=== PATIENT | male | born 1945 | race Caucasian/White ===

== ENCOUNTER 2024-10-19 12:07 | Inpatient (IN) | payer OTHER ==
[~2024-10-19] VITALS: Ht 180.3 cm; Wt 100.0 kg
[~2024-10-19 12:07] MED LIST: BACLPOW; FENT50DI2; LISI-285 PO; MIRALAX PO; OXYB10TA14; PERCOT PO; PRA25T PO; PRAM0.5T2 PO; PREVACID PO; TRAZ-227 PO; WARF5TAB PO; WELLBUTRIN PO; [UNRECOGNIZED DRUG - OTHER] PO
--- NOTE | 2024-10-19 12:22 | ED.PDOC ---
History of Present Illness HPI Comments 79-year-old male brought by paramedics from his home because she was having generalized weakness vomiting blood which started yesterday progressively getting worse. Patient also is complaining of abdominal discomfort without nausea vomiting. He is on a blood thinner. 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 He does not ambulate with difficulty. History of hypertension. His blood pressure when paramedics arrived was systolic 80 sitting down while lying it has increased to systolic 100. Patient mentating well. Denies any other symptoms. Chief Complaint: Abdominal Pain Time Seen by MD: 12:13 Primary Care Provider: RANDY Ram Notes: Nurses Notes, Medications, Allergies Allergies: Uncoded Allergies: DEMEROL (Allergy, Mild, 02/19/12) Home Meds Reported Medications Warfarin Sodium (Coumadin) 5 Mg Tab, PO HS 02/19/12 Trazodone Hcl (Trazodone Hcl) 50 Mg Tab, PO HS 02/19/12 Fentanyl (Fentanyl) 50 Mcg/Hr Dis 02/19/12 [Baclofen] (Baclofen) No Conflict Check 02/19/12 [Miralax] No Conflict Check, PO DAILY 02/19/12 Oxycodone W/ Acetaminophen (Percocet 5/325MG) 1 Tab Tb, PO PRN 02/19/12 [Dinupan] 10 MG TAB No Conflict Check, PO DAILY 02/19/12 [Prevacid] 30 MG CAP No Conflict Check, PO DAILY 02/19/12 Lisinopril & Hydrochlorothiazi (Lisinopril/Hydrochlorothi) 1 Tab Tab, PO HS 02/19/12 [Wellbutrin] 50 MG TAB No Conflict Check, PO DAILY 02/19/12 Pramipexole Dihydrochloride (Mirapex) 0.25 Mg Tab, PO PRN 02/19/12 Pramipexole Dihydrochloride (Mirapex) 0.5 Mg Tab, PO HS 02/19/12 Oxybutynin Chloride (Ditropan Xl) 10 Mg Tab, bid 02/19/12 Information Source: Patient, Emergency Med Personnel Mode of Arrival: EMS Severity: Moderate Timing: Days Duration: Since onset Past Medical History PAST MEDICAL HISTORY: HTN Surgical History: Denies all surgeries Social History Smoker: Non-Smoker Alcohol: Denies ETOH Use Drugs: Denies Drug Use Constitutional: reports: weakness; denies: chills, diaphoresis, fatigue, fever, malaise, sweats, others EENTM: denies: blurred vision, double vision, ear bleeding, ear discharge, ear drainage, ear pain, ear ringing, eye pain, eye redness, hearing loss, mouth pain, mouth swelling, nasal discharge, nose bleeding, nose congestion, nose pain, photophobia, tearing, throat pain, throat swelling, voice changes, others Respiratory: denies: cough, hemoptysis, orthopnea, SOB at rest, shortness of breath, SOB with excertion, stridor, wheezing, others Cardiovascular: denies: chest pain, dizzy spells, diaphoresis, Dyspnea on exertion, edema, irregular heart beat, left arm pain, lightheadedness, palpitations, PND, syncope, others Gastrointestinal: reports: abdominal pain, hematemesis; denies: abdomen distended, blood streaked bowels, constipated, diarrhea, dysphagia, difficulty swallowing, melena, nausea, poor appetite, poor fluid intake, rectal bleeding, rectal pain, vomiting, others Genitourinary: denies: burning, dysuria, flank pain, frequency, hematuria, incontinence, penile discharge, penile sore, pain, testicle pain, testicle swelling, urgency, others Neurological: denies: dizziness, fainting, headache, left sided numbness, left sided weakness, numbness, paresthesia, pre-existing deficit, right sided numbness, right sided weakness, seizure, speech problems, tingling, tremors, weakness, others Musculoskeletal: denies: back pain, gout, joint pain, joint swelling, muscle pain, muscle stiffness, neck pain, others Integumetry: denies: bruises, change in color, change in hair/nails, dryness, laceration, lesions, lumps, rash, wounds, others Allergic/Immunocompromised: denies: Difficulty Healing, Frequent Infections, Hives, Itching, others Hematologic/Lymphatic: denies: anemia, blood clots, easy bleeding, easy bruising, swollen glands, others Endocrine: denies: excessive hunger, excessive sweating, excessive thirst, excessive urination, flushing, intolerance to cold, intolerance to heat, unexplained weight gain, unexplained weight loss, others Psychiatric: denies: anxiety, bipolar disorder, depression, hopeless, panic disorder, schizophrenia, sleepless, suicidal, others Physical Exam General Appearance: Moderate Distress HEENT: Normal ENT Inspection, Pharynx Normal, TMs Normal Neck: Full Range of Motion, Non-Tender, Normal, Normal Inspection Respiratory: Chest Non-Tender, Lungs Clear, No Accessory Muscle Use, No Respiratory Distress, Normal Breath Sounds Cardiovascular: No Edema, No JVD, No Murmur, No Gallop, Normal Peripheral Pulses, Regular Rate/Rhythm Breast Exam: Deferred Gastrointestinal: No Organomegaly, Non Tender, No Pulsatile Mass, Normal Bowel Sounds, Soft Genitalia: Deferred Pelvic: Deferred Rectal: Deferred Extremities: No calf tenderness, Pedal edema, Swelling (Bilateral lower extremity chronic) Musculoskeletal : Apperance: Normal Neurologic: Alert, Motor Weakness (Bilateral lower extremity) Cerebellar Function: NOT DONE Reflexes: NOT DONE Skin: Normal Color Peripheral Pulses: 3+ Radial (R), 3+ Radial (L) Lymphatic: No Adenopathy Was a procedure done? Was a procedure done?: No EKG EKG : Pulse Rate (adult): 96 Cardiac Rhythm: NSR Differential Dx Considerations may include: GI bleed Electrolyte imbalance X-Ray, Labs, Meds, VS Vital Signs Date Time Temp Pulse Resp B/P (MAP) Pulse Ox O2 Delivery O2 Flow Rate FiO2 10/19/24 12:14 98.7 97 13 100/65 98.7 Patient alert. Complaining of vomiting blood. He is on blood thinner. Vitals stable. Paraplegic affecting bilateral lower extremity. Mentating well. GI consultation. Possible endoscope. Explained to the patient. Continue monitoring. Time of 1ST Reevaluation: 12:20 Reevaluation 1ST: Unchanged Patient Education/Counseling: Diagnosis, Treatment, Prognosis Family Education/Counseling: No Family Present SEPSIS Sepsis Screen Physician Orders Complete Blood Count (10/19/24 12:29) Urinalysis (10/19/24 12:29) Zofran (10/19/24 12:30) 0.9% Nacl 1 Liter Bolus (10/19/24 12:30) Vital Signs Date Time Temp Pulse Resp B/P (MAP) Pulse Ox O2 Delivery O2 Flow Rate FiO2 10/19/24 12:14 98.7 97 13 100/65 98.7 Departure 1 Departure Time of Disposition: 12:22 Impression: Primary Impression: GI bleed Qualified Codes: K92.2 - Gastrointestinal hemorrhage, unspecified Disposition: 09 ADMITTED INPATIENT Admit to: Med Surg Condition: Guarded Critical Care Note Critical Care Time?: No Stability Stability form required: No Heart Score Heart Score: Heart Score Response (Comments) Value History Slightly Suspicious 0 EKG Normal 0 Age >65 2 Risk Factors >3 or Hx ASHD 2 Troponin Normal limit 0 Total 4 GENA CORREA MD Oct 19, 2024 12:22
[2024-10-19 13:18] VITALS: PULSE 94; RESP 20; RESP 21; O2SAT 100
[2024-10-19] MEDS: MORPHINE SULFATE 4 MG/ML SYR/VIAL IV ONE (13:27)
[2024-10-19] MEDS: SODIUM CHLORIDE 0.9% 1,000 ML IVB ONE (13:27)
[2024-10-19] MEDS: ONDANSETRON HCL 4 MG/2 ML VIAL IV ONE (13:28)
[2024-10-19] MEDS: PANTOPRAZOLE 40 MG/10 ML VIAL INJ IV ONE (13:29)
[2024-10-19 13:41] LABS: Hematocrit 43.0 % (41.0-53.0); Hemoglobin 14.4 g/dL (13.5-17.5); Mean Corpuscular Hemoglobin 29.4 pg (28.0-32.0); Mean Corpuscular Volume 88.2 fL (80.0-100.0); Nucleated Red Blood Cells % 0.0 %
[2024-10-19 13:46] LABS: Chloride 101 mmol/L (98-107); Potassium 5.0 mmol/L (3.5-5.1)
[2024-10-19 13:47] LABS: Anion Gap 8 (5-15); Calcium 10.0 mg/dL (8.7-10.4); Carbon Dioxide 27 mmol/L (20-31)
[2024-10-19 13:48] LABS: Sodium 136 mmol/L (136-145)
[2024-10-19 13:52] LABS: BUN/Creatinine Ratio 13.8 (10.0-20.0)
[2024-10-19 13:55] LABS: Blood Urea Nitrogen 31 mg/dL (9-23); Glucose 117 mg/dL (74-106)
--- NOTE | 2024-10-19 16:33 | DVH ---
Indication: abd pain Technique: CT axial images of the abdomen and pelvis are obtained without contrast. Coronal and sagit jonathan reformats were obtained. Radiation Dose Information: CTDI volume is 25.39 mGy. Dose-length product is 1492 mGy*cm Comparison: None FINDINGS: There is limited interpretation of the abdomen and pelvis without administration of intravenous contr ast. Lung bases demonstrate bibasilar atelectasis. Developing right lower lobe airspace consolidation vers us nodule measuring 2.2 cm. Adrenal glands, spleen unremarkable in shape. Pancreatic parenchymal atrophy. Liver is unremarkable in shape. No CT evidence for cholelithiasis. No hydronephrosis, nephrolithiasis. Moderate size hiatal hernia. Stomach is partially distendedm. Small bowel loops are abnormally dila jasmine up to approximately 5 cm with multiple air-fluid levels. Bowel wall thickening in the lower abdom en/ pelvis. Large volume stool within the colon. Appendix poorly characterized appears to be normal in diameter, axial image 49. There are Fecal like contents within the small bowel. There is associated mesenteric edema and stranding. IVC filter. Abdominal aortic atherosclerotic disease. Bladder partially distended. Small amount of a scites fluid/ mesenteric edema, mesenteric haziness and stranding. [id number] bilateral sacroiliac degenerative joint disease. Thoracic kyphotic deformity. Moder ate to advanced thoracolumbar degenerative disc disease. Thoracolumbar levocurvature. IMPRESSION: Limited evaluation without contrast. Diffuse dilatation of small-bowel loops up to 5 cm with air-fluid levels and Fecal like contents with surrounding mesenteric edema / stranding. This could be secondary to small-bowel obstruction, high-g rade ileus/constipation. Recommend surgical consultation for further evaluation, management. Associated bowel wall thickening of the small bowel loops most pronounced within lower abdomen/ pelvi s likely secondary to the underlying obstruction/severe ileus Large volume stool within the colon Developing right lower lobe airspace consolidation versus nodule measuring 2.2 cm. Follow-up to reso lution to exclude underlying pulmonary lesion /malignancy. IVC filter.
[2024-10-19] MEDS: PIPERACILLIN-TAZOB 3.375GM 100 ML IV ONE (18:31)
[2024-10-19] MEDS ORDERED: MORPHINE SULFATE INJ 2 MG/ml SYRG IV PRN (18:45)
[2024-10-19] MEDS ORDERED: ONDANSETRON HCL 4 MG/2 ML VIAL IV PRN (18:45)
[2024-10-19] MEDS ORDERED: DOCUSATE SOD 100 MG CAP PO PRN (18:45)
[2024-10-19] MEDS ORDERED: NITROGLYCERIN 0.4 MG SL TAB SL PRN (18:45)
[2024-10-19] MEDS: D5W/LACTATED RINGERS 1,000 ML IV ONE (18:45)
--- NOTE | 2024-10-19 18:47 | DVHHP2 ---
Admitting Diagnosis: abdominal pain History of Present Illness 79-year-old male brought by paramedics from his home because she was having generalized weakness vomiting blood which started yesterday progressively getting worse. Patient also is complaining of abdominal discomfort without nausea vomiting. He is on a blood thinner. 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 He does not ambulate with difficulty. History of hypertension. His blood pressure when paramedics arrived was systolic 80 sitting down while lying it has increased to systolic 100. Patient mentating well. Denies any other symptoms. PAST MEDICAL HISTORY: HTN Surgical History: Denies all surgeries Smoker: Non-Smoker Alcohol: Denies ETOH Use Drugs: Denies Drug Use Allergies: Coded Allergies: Meperidine (Unverified Allergy, Unknown, 10/19/24) Home Meds Reported Medications Warfarin Sodium (Coumadin) 5 Mg Tab, PO HS 02/19/12 Trazodone Hcl (Trazodone Hcl) 50 Mg Tab, PO HS 02/19/12 Fentanyl (Fentanyl) 50 Mcg/Hr Dis 02/19/12 [Baclofen] (Baclofen) No Conflict Check 02/19/12 [Miralax] No Conflict Check, PO DAILY 02/19/12 Oxycodone W/ Acetaminophen (Percocet 5/325MG) 1 Tab Tb, PO PRN 02/19/12 [Dinupan] 10 MG TAB No Conflict Check, PO DAILY 02/19/12 [Prevacid] 30 MG CAP No Conflict Check, PO DAILY 02/19/12 Lisinopril & Hydrochlorothiazi (Lisinopril/Hydrochlorothi) 1 Tab Tab, PO HS 02/19/12 [Wellbutrin] 50 MG TAB No Conflict Check, PO DAILY 02/19/12 Pramipexole Dihydrochloride (Mirapex) 0.25 Mg Tab, PO PRN 02/19/12 Pramipexole Dihydrochloride (Mirapex) 0.5 Mg Tab, PO HS 02/19/12 Oxybutynin Chloride (Ditropan Xl) 10 Mg Tab, bid 02/19/12 Current Medications Current Medications Medications (Trade) Dose Ordered Sig/Max Route PRN Reason Start Time Stop Time Status Last Admin Sodium Chloride (Saline Lock Ns) 10 ml Q8HR IV 10/19/24 22:00 Docusate Sodium (Colace Capsule) 100 mg BIDPRN PRN PO FOR CONSTIPATION 10/19/24 18:45 Ondansetron HCl (Zofran) 4 mg Q4HP PRN IV NAUSEA / VOMITING 10/19/24 18:45 Nitroglycerin (Ntrostat Sublingual) 0.4 mg Q5MINP PRN SL FOR CHEST PAIN 10/19/24 18:45 Morphine Sulfate 2 mg Q30M PRN IV FOR CHEST PAIN 10/19/24 18:45 Morphine Sulfate 1 mg Q4HPRN PRN IV SEVERE PAIN (7-10 PAIN SCALE) 10/19/24 18:45 Vital Signs Vital Signs Date Time Temp Pulse Resp B/P (MAP) Pulse Ox O2 Delivery O2 Flow Rate FiO2 10/19/24 18:00 89 26 121/65 (83) 98 10/19/24 13:18 Nasal Cannula* 2 28 10/19/24 13:18 98.6 98.6 Physical Exam Generally-Patient is 71 years old male, well nourished well developed. No apparent distress HEENT-atraumatic, normocephalic Heart-regular rate and rhythm Lungs clear to auscultate bilaterally Abdomen soft nontender nondistended Musculoskeletal-no edema cyanosis Neuro-alert and oriented x3, strength intact upper extremity. Lower extremity weakness SEPSIS Sepsis Screen Date sepsis recognized/suspect: Oct 19, 2024 Time Sepsis recognized/suspect: 1324 Recent Procedure: No On Antibiotic Therapy: No Respiratory Rate >20: No Heart Rate >90: Yes Temp<36 C (96.8 F) or >38.3 C: No SBP <90 or MAP <65 mmHG: No New Acute Mental Status Change: No Is the patient on CPAP, BIPAP,: No Physician Orders Urinalysis (10/19/24 12:29) Electrocardigram (10/19/24 12:38) Ct Ab Pel Wo Con-No Oral Or Iv (10/19/24 15:46) Ngt/Ogt (10/19/24 ) * Surgical Consult (10/19/24 ) Ng To Lis (10/19/24 18:35) Admit (10/19/24 18:42) Code Status (10/19/24 18:42) Vital Signs .PER UNIT PROTOCOL (10/19/24 18:42) Review Orders With Adm. (10/19/24 18:42) Encourage Activity As Tolerate (10/19/24 18:42) Sodium Chloride Lock (Saline Lock Ns) (10/19/24 22:00) Docusate Sodium Capsule (Colace Capsule) (10/19/24 18:45) Notify Md Of Changes From Base (10/19/24 18:42) Advance Directive (10/19/24 18:42) Patient Condition (10/19/24 18:42) Allergies (10/19/24 18:42) Ondansetron Hcl (Zofran) (10/19/24 18:45) Nitroglycerin Sublingual (Ntrostat Subli (10/19/24 18:45) Morphine Sulfate Injection (10/19/24 18:45) Stat Ekg For Chest Pain (10/19/24 18:42) Notify Md Of Changes From Base (10/19/24 18:42) Medical Affairs Director For 24 Hours (10/19/24 18:42) Emergency Dysrhythmia Protocol (10/19/24 18:42) Rhythm Strips Once Every Shift (10/19/24 18:42) Oxygen By Nasal Cannula (10/19/24 18:42) D5w/Lactated Ringers (D5wlr) (10/19/24 18:45) Kidney (10/19/24 18:42) Morphine Sulfate Injection (10/19/24 18:45) Chest Xray 1 View (10/19/24 18:57) Vital Signs Date Time Temp Pulse Resp B/P (MAP) Pulse Ox O2 Delivery O2 Flow Rate FiO2 10/19/24 18:00 89 26 121/65 (83) 98 10/19/24 17:11 91 24 116/68 10/19/24 17:00 91 24 119/64 (82) 100 10/19/24 16:41 87 29 112/71 10/19/24 15:00 90 19 119/76 (90) 99 10/19/24 13:18 94 20 100 Nasal Cannula* 2 28 10/19/24 13:18 98.6 94 20 108/64 (79) 100 98.6 10/19/24 12:32 96 10/19/24 12:28 96 10/19/24 12:14 98.7 97 13 100/65 98.7 Laboratory Tests Test 10/19/24 13:10 White Blood Count 4.7 10^3/uL (4.4-10.8) Medications Medications Dose Ordered Sig/Max Route Start Time Stop Time Status Last Admin Dose Admin Morphine Sulfate 4 mg ONCE ONCE IV 10/19/24 12:30 10/19/24 12:32 DC 10/19/24 16:41 Ondansetron HCl 4 mg ONCE ONCE IV 10/19/24 12:30 10/19/24 12:32 DC 10/19/24 16:25 Pantoprazole Sodium 40 mg ONCE ONCE IV 10/19/24 12:30 10/19/24 12:32 DC 10/19/24 13:29 Piperacillin Sod/ Tazobactam Sod 100 ml @ 100 mls/hr ONCE ONCE IV 10/19/24 17:30 10/19/24 18:29 DC 10/19/24 18:31 Sodium Chloride 1,000 ml @ 1,000 mls/hr Q1H ONCE IVB 10/19/24 12:30 10/19/24 13:29 DC 10/19/24 13:27 Results Labs Test 10/19/24 19:25 10/19/24 13:10 Range/Units White Blood Count 4.7 4.4-10.8 10^3/uL Red Blood Count 4.88 4.5-5.90 10^6/uL Hemoglobin 14.4 13.5-17.5 g/dL Hematocrit 43.0 41.0-53.0 % Mean Corpuscular Volume 88.2 80.0-100.0 fL Mean Corpuscular Hemoglobin 29.4 28.0-32.0 pg Mean Corpuscular Hemoglobin Concent 33.4 32.0-36.0 g/dL Red Cell Distribution Width 17.4 H 11.8-14.3 % Platelet Count 159 140-450 10^3/uL Mean Platelet Volume 8.9 6.9-10.8 fL Neutrophils (%) (Auto) 81.4 H 37.0-80.0 % Lymphocytes (%) (Auto) 8.3 L 10.0-50.0 % Monocytes (%) (Auto) 10.1 0.0-12.0 % Eosinophils (%) (Auto) 0.0 0.0-7.0 % Basophils (%) (Auto) 0.2 0.0-2.0 % Neutrophils # (Auto) 3.8 1.6-8.6 10 ^3/uL Lymphocytes # (Auto) 0.4 0.4-5.4 10 ^3/uL Monocytes # (Auto) 0.5 0-1.3 10 ^3/uL Eosinophils # (Auto) 0 0-0.8 10 ^3/uL Basophils # (Auto) 0 0-0.2 10 ^3/uL Nucleated Red Blood Cells 0.0 % Sodium Level 136 136-145 mmol/L Potassium Level 5.0 3.5-5.1 mmol/L Chloride Level 101 98-107 mmol/L Carbon Dioxide Level 27 20-31 mmol/L Anion Gap 8 5-15 Blood Urea Nitrogen 31 H 9-23 mg/dL Creatinine 2.25 H 0.700-1.30 mg/dL Glomerular Filtration Rate Calc 29 >90 mL/min BUN/Creatinine Ratio 13.8 10.0-20.0 Serum Glucose 117 H 74-106 mg/dL Calcium Level 10.0 8.7-10.4 mg/dL Primary Diagnosis Small-bowel obstruction Right lower airspace consolidation and possible pneumonia Constipation Plan Start NG tube to lower intermittent suction Zosyn for broad-spectrum antibiotics IV fluids Surgery consult NPO except meds Full code SCD for DVT prophylaxis PPI for GI prophylaxis Plan discussed with: Patient Problems List: (1) SBO (small bowel obstruction) Date of Service: Oct 19, 2024 Billing Provider: BILLY DUNN MD Common Visit Codes: [id number] INP/OBS CARE (HIGH) BILLY DUNN MD Oct 19, 2024 18:47
--- NOTE | 2024-10-19 19:49 | DVH ---
CHEST RADIOGRAPH Indication: confirm NG tube placement Technique: Single frontal view of the chest was obtained COMPARISON: None FINDINGS: Lines and Tubes: The NG tube is seen approaching the diaphragm but the tip is not clearly identified Lungs: Bilateral opacities may reflect atelectasis or pneumonia. Pleura: No effusion. No pneumothorax. Cardiomediastinal contours: Unremarkable Bones: Unremarkable IMPRESSION: 1. The NG tube is seen approaching the diaphragm but the tip is not clearly identified. Recommend re peat chest x-ray
[2024-10-19 20:04] VITALS: PULSE 78; RESP 20; O2SAT 97
[2024-10-19 20:19] LABS: Urine Protein, UAD Negative (Negative)
--- NOTE | 2024-10-19 20:32 | DVH ---
INDICATION: mariana vs mariana vs ckd TECHNIQUE: Multiple real-time sonographic images of the kidneys and bladder were obtained. COMPARISON: None FINDINGS: The right kidney is only partially visualized but does not demonstrate hydronephrosis. The left kidney measures 8.7 cm cm in length. Echogenic left kidney may reflect sequelae of chronic m edical renal disease. No hydronephrosis or large masses/calculi are seen. No large intraluminal masses are seen in the bladder. Urinary bladder is unremarkable. IMPRESSION: No hydronephrosis. Echogenic left kidney may reflect sequelae of chronic medical renal disease.
[2024-10-19] MEDS: SODIUM CHLOR 0.9% PF (SALINE LOCK) 10ML VIAL/SYR IV SCH (20:58)
[2024-10-19 22:00] VITALS: BP 102/46; PULSE 88; RESP 17; TEMP 99.3; O2SAT 94
[2024-10-20] VITALS (7 sets, daily range): BP systolic 90–113; BP diastolic 50–81; PULSE 71–100; RESP 16–20; TEMP 97.8–98.4; O2SAT 90–94
[2024-10-20] MEDS ORDERED: MIRA25TA4 PO (00:15)
[2024-10-20] MEDS ORDERED: POLYPOW85 PO (00:15)
[2024-10-20] MEDS ORDERED: ATOR40TA52 PO (00:15)
[2024-10-20] MEDS ORDERED: LISI20TA56 PO (00:15)
[2024-10-20] MEDS ORDERED: DABI150C5 PO (00:15)
[2024-10-20] MEDS ORDERED: [UNRECOGNIZED DRUG - CODE] PO (00:15)
[2024-10-20] MEDS ORDERED: PANT40T PO (00:15)
[2024-10-20] MEDS ORDERED: TAMS0.4C39 PO (00:15)
[2024-10-20] MEDS ORDERED: DICL75TA3 TOP (00:15)
[2024-10-20] MEDS ORDERED: [UNRECOGNIZED DRUG - CODE] PO (00:15)
[2024-10-20] MEDS ORDERED: AMIT25TA20 PO (00:15)
[2024-10-20] MEDS ORDERED: CALC-134 PO (00:15)
[2024-10-20] MEDS: MORPHINE SULFATE INJ 2 MG/ml SYRG IV PRN (01:16)
--- NOTE | 2024-10-20 09:17 | DVH ---
Exam: XY KUB ABDOMEN SINGLE VIEW Indication: r/o SBO Comparison: US KIDNEY on DOS: 10/19/24, CT CT AB PEL WO CON-NO ORAL OR IV on DOS: 10/19/24 Technique: 2 radiographic views of the abdomen. Findings: Multiple abnormally dilated loops of small bowel are seen throughout the abdomen suggestive of small- bowel obstruction. There is no definite evidence for pneumoperitoneum. IVC filter is noted. Impression: 1. Small-bowel obstruction.
[2024-10-20] MEDS: FLEET ENEMA(ADULT) 135 ML PR ONE (10:00)
--- NOTE | 2024-10-20 10:44 | DVHINCON2 ---
Date of service: Oct 20, 2024 History of Present Illness 71-year-old male with a history of constipation admitted secondary to blood tinged emesis and abdominal pain. Patient reports having a bowel movement day prior to admission. Currently reports that his abdominal pain is significantly improved. Past Medical History Spinal injury resulting in walking with a walker. Hypertension. History of DVTs status post IVC filter Past Surgical History Subcutaneous pump placement for back pain/muscle spasm Family History: Deep vein thrombosis Grandfather FH: pulmonary embolism G8 SISTER Family History Noncontributory Social History Denies alcohol, tobacco, IV drug use Allergies: Coded Allergies: Meperidine (Unverified Allergy, Unknown, 10/19/24) Home Meds Reported Medications Calcium Citrate Tetrahydrate (Calcium Citrate) Citrate Pow, 100 UNIT PO, POW 10/20/24 Diclofenac Sodium (Diclofenac Sodium Dr) 75 Mg Tab, 4 G TOP BID, TAB 10/20/24 Lisinopril (Lisinopril) 20 Mg Tab, 1 TAB PO DAILY, #30 TAB 5 Refills 10/20/24 Dabigatran Etexilate Mesylate (Pradaxa) 150 Mg Cap, 110 MG PO BID, CAP 10/20/24 Pantoprazole Sodium Sesquihydr (Pantoprazole Sodium) 40 Mg Tab, 40 MG PO BID, TAB 10/20/24 Atorvastatin Calcium (ATORVASTATIN CALCIUM) 40 Mg Tab, 0.5 TAB PO DAILY, #30 TAB 5 Refills 10/20/24 Bupropion HCl (Bupropion Hydrochloride S) 200 Mg Tab, 150 MG PO DAILY, TAB 10/20/24 Tamsulosin Hcl (Tamsulosin Hcl) 0.4 Mg Cap, 0.4 MG PO BID for 30 Days, MG 10/20/24 Pramipexole Dihydrochloride (Pramipexole Dihydrochlori) 4.5 Mg Tab, 0.5 MG PO DAILY, TAB 10/20/24 Mirabegron (Mirabegron ER) 25 Mg Tab, 50 MG PO PRN for As needed, TAB 10/20/24 Polyethylene Glycol 3350 (Clearlax) 17 Gm/Scoop Pow, 17 GM PO DAILY, POW 10/20/24 Amitriptyline Hcl (Amitriptyline Hcl) 25 Mg Tab, 25 MG PO for 30 Days, MG 10/20/24 Warfarin Sodium (Coumadin) 5 Mg Tab, PO HS 02/19/12 Trazodone Hcl (Trazodone Hcl) 50 Mg Tab, PO HS 02/19/12 [Baclofen] (Baclofen) No Conflict Check 02/19/12 [Miralax] No Conflict Check, PO DAILY 02/19/12 Oxycodone W/ Acetaminophen (Percocet 5/325MG) 1 Tab Tb, PO PRN 02/19/12 [Dinupan] 10 MG TAB No Conflict Check, PO DAILY 02/19/12 [Prevacid] 30 MG CAP No Conflict Check, PO DAILY 02/19/12 Lisinopril & Hydrochlorothiazi (Lisinopril/Hydrochlorothi) 1 Tab Tab, PO HS 02/19/12 [Wellbutrin] 50 MG TAB No Conflict Check, PO DAILY 02/19/12 Pramipexole Dihydrochloride (Mirapex) 0.25 Mg Tab, PO PRN 02/19/12 Pramipexole Dihydrochloride (Mirapex) 0.5 Mg Tab, PO HS 02/19/12 Oxybutynin Chloride (Ditropan Xl) 10 Mg Tab, bid 02/19/12 Discontinued Reported Medications Fentanyl (Fentanyl) 50 Mcg/Hr Dis 02/19/12 Current Medications Current Medications Medications (Trade) Dose Ordered Sig/Max Route PRN Reason Start Time Stop Time Status Last Admin Sodium Chloride (Saline Lock Ns) 10 ml Q8HR IV 10/19/24 22:00 10/20/24 06:11 Docusate Sodium (Colace Capsule) 100 mg BIDPRN PRN PO FOR CONSTIPATION 10/19/24 18:45 Ondansetron HCl (Zofran) 4 mg Q4HP PRN IV NAUSEA / VOMITING 10/19/24 18:45 Nitroglycerin (Ntrostat Sublingual) 0.4 mg Q5MINP PRN SL FOR CHEST PAIN 10/19/24 18:45 Morphine Sulfate 2 mg Q30M PRN IV FOR CHEST PAIN 10/19/24 18:45 Morphine Sulfate 1 mg Q4HPRN PRN IV SEVERE PAIN (7-10 PAIN SCALE) 10/19/24 18:45 10/20/24 01:16 Pantoprazole Sodium (Protonix) 40 mg DAILY IV 10/20/24 10:00 Vital Signs Vital Signs Date Time Temp Pulse Resp B/P (MAP) Pulse Ox O2 Delivery O2 Flow Rate FiO2 10/20/24 08:30 98.0 100 20 113/77 (89) 92 98.0 10/19/24 23:40 Room Air* 0 21 Physical Exam GEN: Elderly male in no acute distress. Alert. HEENT: Normocephalic atraumatic. Moist mucous membranes. Anicteric sclerae. Patient requires hearing aid CV: RRR Respiratory: CTAB ABD: There is a subcutaneous pump in the left abdominal wall. Soft with minimal distention. Very minimal diffuse tenderness to palpation without guarding or rebound. CT of the abdomen and pelvis: Diffuse dilatation of the small bowel loops up to 5 cm with air-fluid levels and fecal like contents with surrounding mesenteric edema/stranding. Large volume stool in the colon. Labs/Diagnostic Data Labs Test 10/19/24 19:25 10/19/24 13:10 Range/Units Urine Color Yellow Yellow Urine Clarity Turbid H Clear Urine pH 5.0 5.0-9.0 Urine Specific [place] 1.016 1.001-1.035 Urine Protein Negative Negative Urine Ketones Negative Negative Urine Blood Negative Negative /uL Urine Nitrite Negative Negative Urine Bilirubin Negative Negative Urine Urobilinogen Normal Negative mg/dL Urine Leukocyte Esterase Negative Negative /uL Urine RBC 2 0 - 3 /hpf Urine Microscopic WBC 4 H 0-3 /HPF Urine Squamous Epithelial Cells Few <5 /hpf Urine Bacteria None seen None Seen /hpf Urine Hyaline Casts Few 0 - 2 /lpf Urine Glucose Normal Normal mg/dL White Blood Count 4.7 4.4-10.8 10^3/uL Red Blood Count 4.88 4.5-5.90 10^6/uL Hemoglobin 14.4 13.5-17.5 g/dL Hematocrit 43.0 41.0-53.0 % Mean Corpuscular Volume 88.2 80.0-100.0 fL Mean Corpuscular Hemoglobin 29.4 28.0-32.0 pg Mean Corpuscular Hemoglobin Concent 33.4 32.0-36.0 g/dL Red Cell Distribution Width 17.4 H 11.8-14.3 % Platelet Count 159 140-450 10^3/uL Mean Platelet Volume 8.9 6.9-10.8 fL Neutrophils (%) (Auto) 81.4 H 37.0-80.0 % Lymphocytes (%) (Auto) 8.3 L 10.0-50.0 % Monocytes (%) (Auto) 10.1 0.0-12.0 % Eosinophils (%) (Auto) 0.0 0.0-7.0 % Basophils (%) (Auto) 0.2 0.0-2.0 % Neutrophils # (Auto) 3.8 1.6-8.6 10 ^3/uL Lymphocytes # (Auto) 0.4 0.4-5.4 10 ^3/uL Monocytes # (Auto) 0.5 0-1.3 10 ^3/uL Eosinophils # (Auto) 0 0-0.8 10 ^3/uL Basophils # (Auto) 0 0-0.2 10 ^3/uL Nucleated Red Blood Cells 0.0 % Sodium Level 136 136-145 mmol/L Potassium Level 5.0 3.5-5.1 mmol/L Chloride Level 101 98-107 mmol/L Carbon Dioxide Level 27 20-31 mmol/L Anion Gap 8 5-15 Blood Urea Nitrogen 31 H 9-23 mg/dL Creatinine 2.25 H 0.700-1.30 mg/dL Glomerular Filtration Rate Calc 29 >90 mL/min BUN/Creatinine Ratio 13.8 10.0-20.0 Serum Glucose 117 H 74-106 mg/dL Calcium Level 10.0 8.7-10.4 mg/dL Assessment 1. Partial small bowel obstruction Plan/Recommendation 1. They attempted NG tube placement multiple times without success. Patient is currently refusing NG tube and understands that without the NG tube his clinical situation may get worse however still refused. We will get a small-bowel follow-through with Gastrografin and also give him a Fleet enema. Plan discussed with: Patient NATAN ARGUETA MD Oct 20, 2024 10:44
--- NOTE | 2024-10-20 10:54 | DVHPN2 ---
Subjective Patient is seen and examined at bedside, patient is complaining of abdominal pain. Patient reports he has to self stimulate for bowel movements at home. Has a pain pump for Lumbar back pain. Last bowel movement was 4 days ago[address] Unable to place NGT. Strict NPO. Will get Small bowel series. I spoke with the patients daughter Mely over the phone and updated on plan of care. Changes from previous H/P or p: No Changes Objective Vitals Vital Signs Date Time Temp Pulse Resp B/P (MAP) Pulse Ox O2 Delivery O2 Flow Rate FiO2 10/20/24 08:30 98.0 100 20 113/77 (89) 92 98.0 10/19/24 23:40 Room Air* 0 21 Intake/Output Intake and Output 10/20/24 07:00 Intake Total 1100 ml Output Total 550 ml Balance 550 ml Intake Oral 0 ml IV Total 1100 ml Output Urine Total 550 ml General Appearance: Alert, Oriented X3, Cooperative, No acute distress HEENT: Atraumatic Lungs: Clear to auscultation Cardiovascular: Regular rate, Normal S1, Normal S2 Abdomen: Soft Rectal: Deferred Psych/Mental Status: Mental status NL Medications Current Medications Medications Dose Ordered Sig/Max Route Start Time Stop Time Status Last Admin Dose Admin Sodium Chloride 10 ml Q8HR IV 10/19/24 22:00 10/20/24 06:11 10 ML Docusate Sodium 100 mg BIDPRN PRN PO 10/19/24 18:45 Ondansetron HCl 4 mg Q4HP PRN IV 10/19/24 18:45 Nitroglycerin 0.4 mg Q5MINP PRN SL 10/19/24 18:45 Morphine Sulfate 2 mg Q30M PRN IV 10/19/24 18:45 Morphine Sulfate 1 mg Q4HPRN PRN IV 10/19/24 18:45 10/20/24 01:16 1 MG Pantoprazole Sodium 40 mg DAILY IV 10/20/24 10:00 Sodium Chloride 1,000 ml @ 75 mls/hr [id number] IV 10/20/24 11:00 UNV Laboratory Results Laboratory Tests 10/19/24 13:10 Chemistry Test 10/19/24 13:10 Calcium Level 10.0 mg/dL (8.7-10.4) Urinalysis Test 10/19/24 19:25 Urine Color Yellow (Yellow) Urine Clarity Turbid (Clear) H Urine pH 5.0 (5.0-9.0) Urine Specific [place] 1.016 (1.001-1.035) Urine Protein Negative (Negative) Urine Ketones Negative (Negative) Urine Blood Negative /uL (Negative) Urine Nitrite Negative (Negative) Urine Bilirubin Negative (Negative) Urine Urobilinogen Normal mg/dL (Negative) Urine Leukocyte Esterase Negative /uL (Negative) Urine RBC 2 /hpf (0 - 3) Urine Microscopic WBC 4 /HPF (0-3) H Urine Squamous Epithelial Cells Few /hpf (<5) Urine Bacteria None seen /hpf (None Seen) Urine Hyaline Casts Few /lpf (0 - 2) Urine Glucose Normal mg/dL (Normal) Assessment/Plan Assessment/Plan # Bowel Obstruction, Small - NPO - Small bowel series - Surgical Cx - R/o Ischemic Bowel # SATURNINO on CKD, baseline unknown - Monitor - Gentle IVF # Right Lung Nodule??? - Outpatient CT Chest with KP - Advised patients daughter to schedule # Chronic pain - Pain Pump # Goals of care discussion >18 mins FULL CODE Plan discussed with: Patient, Daughter My Orders Orders - DOC CRUZ MD Procedure Category Date Status Time Sodium Chloride 0.9% PHA 10/20/24 Logged 11:00 Comprehensive LAB 10/21/24 Verified Metabolic Panel 04:00 Magnesium LAB 10/21/24 Verified 04:00 Lactic Acid W/ Reflex LAB 10/21/24 Verified Order 04:00 * Crossing Supervisor CONS 10/20/24 Transmitted Consult Date of Service: Oct 20, 2024 Billing Provider: DOC CRUZ MD Common Visit Codes: 55559-[id number] INP/OBS CARE(HIGH) Secondary Visit Codes: 21832-[id number] CARE PLAN 30 MINUTES DOC CRUZ MD Oct 20, 2024 10:54
[2024-10-20 11:23] LABS: INR 1.32 (0.9-1.15); Partial Thromboplastin Time 43.1 SEC (24.5-34.5); Prothrombin Time 13.6 sec (9.3-11.8)
[2024-10-20] MEDS: PANTOPRAZOLE 40 MG/10 ML VIAL INJ IV SCH (11:31)
[2024-10-20] MEDS: SODIUM CHLORIDE 0.9% 1,000 ML IV SCH (12:02)
[2024-10-20] MEDS ORDERED: GASTROGRAFIN 120 ML SOL ONE (12:57)
--- NOTE | 2024-10-20 20:07 | DVH ---
Procedure: XY SMALL BOWEL SERIES-W GASTROGRA Reason for study/Clinical History: sbo Comparison Study: None Technique: Single contrast small bowel series performed. FINDINGS/IMPRESSION: Initial pipe out worker view of the abdomen and pelvis appears demonstrates no acute process. KUB after 5 hours shows no opacification of the colon findings suggest small bowel obstruction.
[2024-10-21] VITALS (9 sets, daily range): BP systolic 100–129; BP diastolic 65–85; PULSE 54–100; RESP 17–20; TEMP 97.4–98.2; O2SAT 73–97
[2024-10-21 05:54] LABS: Alanine Aminotransferase 26 U/L (7-40); Albumin 4.3 g/dL (3.2-4.8); Alkaline Phosphatase 81 U/L (46-116); Anion Gap 14 (5-15); BUN/Creatinine Ratio 16.4 (10.0-20.0); Calcium 9.3 mg/dL (8.7-10.4); Carbon Dioxide 24 mmol/L (20-31); Chloride 104 mmol/L (98-107); Glucose 99 mg/dL (74-106); Magnesium 2.2 mg/dL (1.6-2.6); Potassium 4.8 mmol/L (3.5-5.1); Sodium 142 mmol/L (136-145); Total Protein 7.2 g/dL (5.7-8.2)
[2024-10-21 05:55] LABS: Bilirubin, Total 0.9 mg/dL (0.2-1.0); Blood Urea Nitrogen 41 mg/dL (9-23)
--- NOTE | 2024-10-21 11:43 | DVH ---
Exam: XY KUB ABDOMEN SINGLE VIEW Indication: sbo Comparison: XY KUB ABDOMEN SINGLE VIEW on DOS: 10/20/24, US KIDNEY on DOS: 10/19/24, CT CT AB PEL WO CO N-NO ORAL OR IV on DOS: 10/19/24 Technique: 1 radiographic views of the abdomen. Findings: IVC filter is noted. Multiple dilated loops of bowel are seen throughout the abdomen which may reflect small bowel obstruc tion There is no definite evidence for pneumoperitoneum. No abnormal calcifications noted. Impression: 1. Multiple dilated loops of bowel are seen throughout the abdomen which may reflect small bowel obst ruction
--- NOTE | 2024-10-21 11:58 | DVHPN2 ---
Progress Note - Dictate Date Seen: Oct 21, 2024 Medical Necessity Reason Pt with a Central, PICC or Fol: No Subjective E: no major events o/n. feels better than yesterday. +flatus but no BM vital signs Vital Sign Date Time Temp Pulse Resp B/P (MAP) Pulse Ox O2 Delivery O2 Flow Rate FiO2 10/21/24 09:29 98.2 54 18 111/75 (87) 73 98.2 10/21/24 08:00 Room Air* 0 21 Total Intake and Output 10/20/24 10/20/24 10/21/24 15:00 23:00 07:00 Intake Total 980 ml Output Total 325 ml Balance 655 ml medications Current Medications Medications Dose Ordered Sig/Max Route Start Time Stop Time Status Last Admin Dose Admin Sodium Chloride 10 ml Q8HR IV 10/19/24 22:00 10/21/24 09:13 10 ML Docusate Sodium 100 mg BIDPRN PRN PO 10/19/24 18:45 Ondansetron HCl 4 mg Q4HP PRN IV 10/19/24 18:45 Nitroglycerin 0.4 mg Q5MINP PRN SL 10/19/24 18:45 Morphine Sulfate 2 mg Q30M PRN IV 10/19/24 18:45 Morphine Sulfate 1 mg Q4HPRN PRN IV 10/19/24 18:45 10/21/24 02:55 1 MG Pantoprazole Sodium 40 mg DAILY IV 10/20/24 10:00 10/21/24 09:12 40 MG Sodium Chloride 1,000 ml @ 75 mls/hr [id number] IV 10/20/24 11:00 10/21/24 03:50 75 MLS/HR objective GEN: NAD ABD: soft with min distention. less TTP than yesterday. SBFT: no contrast in colon after 5 hrs. KUB: dilated sm intestine. laboratory and microbiology Laboratory Tests 10/21/24 04:51 10/19/24 13:10 Test 10/21/24 04:51 Range/Units Serum Glucose 99 74-106 mg/dL Assessment/Plan A: 1. SBO but clinically showing some improvement. P: 1. TPN 2. repeat CT abd/pelvis tomorrow. Plan discussed with: Patient NATAN ARGUETA MD Oct 21, 2024 11:58
[2024-10-21] MEDS ORDERED: FLEET ENEMA(ADULT) 135 ML PR ONE (12:00)
[2024-10-21] MEDS: SODIUM CHLORIDE 0.9% 1,000 ML IV SCH (12:10)
--- NOTE | 2024-10-21 12:18 | DVHDS2 ---
Discharge Summary Date of Admission Oct 19, 2024 at 18:42 Date of Discharge: Oct 21, 2024 Admitting Diagnosis Small Bowel Obstruction Labs/Diagnostic Data: Laboratory Results Test 10/21/24 04:57 10/21/24 04:51 10/20/24 10:43 10/19/24 19:25 Lactic Acid Level 1.6 mmol/L (0.4-2.0) Sodium Level 142 mmol/L (136-145) Potassium Level 4.8 mmol/L (3.5-5.1) Chloride Level 104 mmol/L (98-107) Carbon Dioxide Level 24 mmol/L (20-31) Anion Gap 14 (5-15) Blood Urea Nitrogen 41 mg/dL (9-23) Creatinine 2.50 mg/dL (0.700-1.30) Glomerular Filtration Rate Calc 26 mL/min (>90) BUN/Creatinine Ratio 16.4 (10.0-20.0) Serum Glucose 99 mg/dL (74-106) Calcium Level 9.3 mg/dL (8.7-10.4) Magnesium Level 2.2 mg/dL (1.6-2.6) Total Bilirubin 0.9 mg/dL (0.2-1.0) Aspartate Amino Transferase (AST) 43 U/L (13-40) Alanine Aminotransferase (ALT) 26 U/L (7-40) Alkaline Phosphatase 81 U/L (46-116) Total Protein 7.2 g/dL (5.7-8.2) Albumin 4.3 g/dL (3.2-4.8) Prothrombin Time 13.6 sec (9.3-11.8) Prothrombin Time INR 1.32 (0.9-1.15) Activated Partial Thromboplast Time 43.1 SEC (24.5-34.5) Urine Color Yellow (Yellow) Urine Clarity Turbid (Clear) Urine pH 5.0 (5.0-9.0) Urine Specific [place] 1.016 (1.001-1.035) Urine Protein Negative (Negative) Urine Ketones Negative (Negative) Urine Blood Negative /uL (Negative) Urine Nitrite Negative (Negative) Urine Bilirubin Negative (Negative) Urine Urobilinogen Normal mg/dL (Negative) Urine Leukocyte Esterase Negative /uL (Negative) Urine RBC 2 /hpf (0 - 3) Urine Microscopic WBC 4 /HPF (0-3) Urine Squamous Epithelial Cells Few /hpf (<5) Urine Bacteria None seen /hpf (None Seen) Urine Hyaline Casts Few /lpf (0 - 2) Urine Glucose Normal mg/dL (Normal) Test 10/19/24 13:10 White Blood Count 4.7 10^3/uL (4.4-10.8) Red Blood Count 4.88 10^6/uL (4.5-5.90) Hemoglobin 14.4 g/dL (13.5-17.5) Hematocrit 43.0 % (41.0-53.0) Mean Corpuscular Volume 88.2 fL (80.0-100.0) Mean Corpuscular Hemoglobin 29.4 pg (28.0-32.0) Mean Corpuscular Hemoglobin Concent 33.4 g/dL (32.0-36.0) Red Cell Distribution Width 17.4 % (11.8-14.3) Platelet Count 159 10^3/uL (140-450) Mean Platelet Volume 8.9 fL (6.9-10.8) Neutrophils (%) (Auto) 81.4 % (37.0-80.0) Lymphocytes (%) (Auto) 8.3 % (10.0-50.0) Monocytes (%) (Auto) 10.1 % (0.0-12.0) Eosinophils (%) (Auto) 0.0 % (0.0-7.0) Basophils (%) (Auto) 0.2 % (0.0-2.0) Neutrophils # (Auto) 3.8 10 ^3/uL (1.6-8.6) Lymphocytes # (Auto) 0.4 10 ^3/uL (0.4-5.4) Monocytes # (Auto) 0.5 10 ^3/uL (0-1.3) Eosinophils # (Auto) 0 10 ^3/uL (0-0.8) Basophils # (Auto) 0 10 ^3/uL (0-0.2) Nucleated Red Blood Cells 0.0 % Other Laboratory Tests 10/21/24 04:51 10/19/24 13:10 Brief Hx & Hospital Course: 71-year-old male with a history of constipation admitted secondary to blood tinged emesis and abdominal pain. Patient reports having a bowel movement day prior to admission. Currently reports that his abdominal pain is significantly improved. Patient had a repeat KUB still showing SBO. Will need to be transferred to [place]. Operations or Procedures Exam: XY KUB ABDOMEN SINGLE VIEW Indication: sbo Comparison: XY KUB ABDOMEN SINGLE VIEW on DOS: 10/20/24, US KIDNEY on DOS: 10/19/24, CT CT AB PEL WO CON-NO ORAL OR IV on DOS: 10/19/24 Technique: 1 radiographic views of the abdomen. Findings: IVC filter is noted. Multiple dilated loops of bowel are seen throughout the abdomen which may reflect small bowel obstruction There is no definite evidence for pneumoperitoneum. No abnormal calcifications noted. Impression: 1. Multiple dilated loops of bowel are seen throughout the abdomen which may reflect small bowel obstruction Condition at Discharge: Stable Final Diagnosis/Problems List Small Bowel Obstruction # SATURNINO on CKD, baseline unknown - Monitor - Gentle IVF # Right Lung Nodule??? - Outpatient CT Chest with - Advised patients daughter to schedule # Chronic pain - Pain Pump Discharge Disposition: Acute Care Facility Discharge Instruct/Medications Diet: See Comment Diet comment: NPO Activity: Light activity Follow Up/Referral: [place] Scheduled Atorvastatin Calcium (Atorvastatin Calcium), 0.5 TAB PO DAILY, (Reported) Bupropion HCl (Bupropion Hydrochloride S), 150 MG PO DAILY, (Reported) Dabigatran Etexilate Mesylate (Pradaxa), 110 MG PO BID, (Reported) Diclofenac Sodium (Diclofenac Sodium Dr), 4 G TOP BID, (Reported) Lisinopril (Lisinopril), 1 TAB PO DAILY, (Reported) Lisinopril & Hydrochlorothiazi (Lisinopril/Hydrochlorothi), PO HS, (Reported) Oxybutynin Chloride (Ditropan Xl), bid, (Reported) Oxycodone W/ Acetaminophen (Percocet 5/325MG), PO PRN, (Reported) Pantoprazole Sodium Sesquihydr (Pantoprazole Sodium), 40 MG PO BID, (Reported) Polyethylene Glycol 3350 (Clearlax), 17 GM PO DAILY, (Reported) Pramipexole Dihydrochloride (Mirapex), PO HS, (Reported) Pramipexole Dihydrochloride (Mirapex), PO PRN, (Reported) Pramipexole Dihydrochloride (Pramipexole Dihydrochlori), 0.5 MG PO DAILY, (Reported) Tamsulosin Hcl (Tamsulosin Hcl), 0.4 MG PO BID, (Reported) Trazodone Hcl (Trazodone Hcl), PO HS, (Reported) Warfarin Sodium (Coumadin), PO HS, (Reported) [Dinupan], PO DAILY, (Reported) [Miralax], PO DAILY, (Reported) [Prevacid], PO DAILY, (Reported) [Wellbutrin], PO DAILY, (Reported) Scheduled PRN Mirabegron (Mirabegron ER), 50 MG PO for As needed, (Reported) Miscellaneous Medications Amitriptyline Hcl (Amitriptyline Hcl), 25 MG PO, (Reported) Calcium Citrate Tetrahydrate (Calcium Citrate), 100 UNIT PO, (Reported) [Baclofen], (Reported) Discontinued Medications Fentanyl (Fentanyl), (Reported) Discharge Statement: "Patient was advised to return to the ER or call 911 if any headaches, dizziness, shortness of breath, chest pain, abdominal pain, bleeding, fevers, or worsening of medical condition. Patient was counseled about treatment plan, medications, possible side effects, patientverbalized understanding. All questions were answered to the best of my ability. This discharge took greater then 30 minutes in planning, reviewing documentation, counseling the patient, and discussing with other team members." ASSESSMENT ASSESSMENT Assessment Date of Service: Oct 21, 2024 Billing Provider: DOC CRUZ MD Common Visit Codes: 73620-ZGH/OBS DISCH DAY >30min DOC CRUZ MD Oct 21, 2024 12:18
[2024-10-21 13:24] LABS: Triglycerides 91.0 mg/dL (< 150)
[2024-10-21] MEDS ORDERED: TPN PER PHARMACY 0 ML IV SCH (22:00)
--- NOTE | 2024-10-22 08:22 | ECG ---
[facility] Test Date: 2024-10-19 Test Time: 12:28:09 Pat Name: RAMONE GARNER Department: [facility] BEDS AT THE [facility] ED Patient ID: COUNTS INCLUDE [id number] BEDS AT THE [facility]-[id number] Room: 0217 B Gender: M Sports Announcer: zina : 1945 Requested By: GENA CORREA Order Number: [id number] Reading MD: Aba Eckert Measurements Intervals Club[place] Rate: 96 P: 10 AL: 177 QRS: -14 QRSD: 87 T: 38 QT: 310 QTc: 392 Interpretive Statements Sinus rhythm Abnormal R-wave progression, early transition Electronically Signed On 10-23-2024 14:31:02 PDT by Aba Eckert Please click the below link to view image of tracing.
== END 2024-10-21 23:18 | disposition short-term general hospital (02) | DRG 389 ==
LOC: EDBD 12:07 → ER 12:07 → OVERFLOW 18:42 → CENTRAL 21:45
PROVIDERS: ADMIT Internal Medicine; ATTEND Internal Medicine
PROC: 0D9670Z Drainage of Stomach with Drainage Device, Via Natural or Artificial Opening (ICD-10-PCS; principal; 2024-10-19)
DX: K56.600 Partial intestinal obstruction, unspecified as to cause (principal); N17.9 Acute kidney failure, unspecified; G89.29 Other chronic pain; N18.9 Chronic kidney disease, unspecified; R91.1 Solitary pulmonary nodule; I12.9 Hypertensive chronic kidney disease with stage 1 through stage 4 chronic kidney disease, or unspecified chronic kidney disease; Z86.718 Personal history of other venous thrombosis and embolism; Z88.8 Allergy status to other drugs, medicaments and biological substances; Z79.899 Other long term (current) drug therapy
CPT/HCPCS: 36415; 71045; 74018; 74176; 74250; 76775; 80048; 80053; 81001; 83605; 83735; 84100; 84478; 85025; 85610; 85730; 93005; 96361; 96374; 96375; 97163; G0378; J2405; J2470; J2543; J3490